=== PATIENT | male | born 1945 | race Caucasian/White ===

== ENCOUNTER → 2017-12-03 | Outpatient (CLI) | payer MEDICARE, OTHER | LOC: RAD 12:47 | PROVIDERS: ATTEND Family Medicine | DX: I25.10 Atherosclerotic heart disease of native coronary artery without angina pectoris (principal); J98.11 Atelectasis; N28.1 Cyst of kidney, acquired; M51.36 Other intervertebral disc degeneration, lumbar region; K57.30 Diverticulosis of large intestine without perforation or abscess without bleeding; L92.9 Granulomatous disorder of the skin and subcutaneous tissue, unspecified; K43.9 Ventral hernia without obstruction or gangrene; R91.8 Other nonspecific abnormal finding of lung field | CPT/HCPCS: 74176 ==

== ENCOUNTER 2018-05-09 09:33 | Emergency (ER) | payer OTHER ==
[~2018-05-09] VITALS: Ht 172.7 cm; Wt 79.5 kg
[2018-05-09 09:43] VITALS: BP 117/79
[2018-05-09] MEDS ORDERED: PRAV20TA2 PO (10:07)
[2018-05-09] MEDS ORDERED: LOSA25TA5 PO (10:07)
[2018-05-09] MEDS ORDERED: METF500T5 PO (10:08)
[2018-05-09] MEDS ORDERED: LISI-167 PO (10:08)
[2018-05-09] MEDS ORDERED: ASPI-496 PO (10:09)
[2018-05-09] MEDS ORDERED: SODIUM CHLORIDE 0.9% 1,000ML IVBOLUS ONE (10:30)
[2018-05-09] MEDS ORDERED: MECLIZINE CHEWABLE 25 MG TAB PO ONE (10:30)
[2018-05-09 10:32] LABS: BASOPHILS % (AUTO) 0 % (0-1); EOSINOPHILS # (AUTO) 0.33 x10^3/uL (0-0.4); EOSINOPHILS % (AUTO) 4 % (1-7); LYMPHOCYTES # (AUTO) 1.29 x10^3/uL (1-3.4); LYMPHOCYTES % (AUTO) 15 % (22-44); MD NO; MEAN CORPUSCULAR HEMOGLOBIN 31.5 pg (27.5-34.5); MEAN CORPUSCULAR HGB CONC 34.2 g/dL (33.2-36.2); MEAN PLATELET VOLUME 9.2 fL (7.4-10.4); MONOCYTES # (AUTO) 0.44 x10^3/uL (0.2-0.8); MONOCYTES % (AUTO) 5 % (2-9); NEUTROPHILS # (AUTO) 6.81 x10^3/uL (1.8-6.8); NEUTROPHILS % (AUTO) 77 % (42-75); PLATELET COUNT 207 x10^3/uL (130-400); RED BLOOD COUNT 5.34 x10^6/uL (4.38-5.82); RED CELL DISTRIBUTION WIDTH 13.1 % (9.4-14.8)
[2018-05-09 10:42] LABS: ALANINE AMINOTRANSFERASE 31 U/L (12-78); ALBUMIN 3.5 g/dL (3.4-5.0); ANION GAP 8 mmol/L (5-15); CALCIUM 8.4 mg/dL (8.5-10.1); CHLORIDE 107 mmol/L (98-107); CREATININE 0.82 mg/dL (0.7-1.3)
[2018-05-09 10:45] LABS: ALKALINE PHOSPHATASE 71 U/L (45-117); BILIRUBIN,TOTAL 0.7 mg/dL (0.2-1.0); TOTAL PROTEIN 6.7 g/dL (6.4-8.2)
[2018-05-09] MEDS ORDERED: MECLIZINE CHEWABLE 25 MG TAB ONE (10:49)
[2018-05-09] MEDS ORDERED: SODIUM CHLORIDE FLUSH 10ML SYR IVF ONE (11:30)
== END 2018-05-09 12:36 | disposition home or self-care (01) ==
LOC: ED 12:30
DX: H81.319 Aural vertigo, unspecified ear (principal); I10 Essential (primary) hypertension; E11.9 Type 2 diabetes mellitus without complications; E78.5 Hyperlipidemia, unspecified; R51 Headache
CPT/HCPCS: 36415; 70450; 80053; 85025; 93005; 96360; 99285; J7030

== ENCOUNTER → 2018-07-21 | Outpatient (CLI) | payer OTHER ==
[~2018-07-21] MED LIST: ASPI-496 PO; LISI-167 PO; LOSA25TA6 PO; METF500T17 PO; PRAV20TA2 PO
== END | disposition home or self-care (01) ==
LOC: STAR 14:40 → MERGE 15:00
PROVIDERS: ATTEND Thoracic Surgery (Cardiothoracic Vascular Surgery)
DX: Z02.9 Encounter for administrative examinations, unspecified (principal)

== ENCOUNTER 2018-07-25 10:27 | Day surgery (SDC) | payer OTHER ==
[~2018-07-25] VITALS: Ht 172.7 cm; Wt 80.9 kg
[~2018-07-25 10:27] MED LIST changes: +BUPIVACAINE/PF-EPI 0.5% 1:200K ONE
[2018-07-25 10:48] VITALS: BP 118/77
[2018-07-25] MEDS ORDERED: MIDAZOLAM 1 MG/ML, 2ML ONE (13:23)
[2018-07-25] MEDS ORDERED: FENTANYL PF 250 MCG/5ML ONE (13:23)
[2018-07-25] MEDS ORDERED: DEXAMETHASONE 4 MG/ML, 1ML ONE (14:02)
[2018-07-25] MEDS ORDERED: GLYCOPYRROLATE 0.2MG/1ML, 5ML ONE (14:02)
[2018-07-25] MEDS ORDERED: NEOSTIGMINE 1 MG/ML, 10ML ONE (14:02)
[2018-07-25] MEDS ORDERED: ROCURONIUM 10 MG/ML,10ML ONE (14:02)
[2018-07-25] MEDS ORDERED: KETOROLAC 30 MG/1 ML ONE (14:02)
[2018-07-25] MEDS ORDERED: ONDANSETRON 2MG/ML, 2ML ONE (14:02)
[2018-07-25] MEDS ORDERED: PROPOFOL 10 MG/ML, 20ML ONE (14:02)
[2018-07-25] MEDS ORDERED: CEFAZOLIN 1,000 MG ONE (14:02)
[2018-07-25] MEDS ORDERED: BUPIVACAINE/PF-EPI 0.5% 1:200K INFIL ONE (14:37)
[2018-07-25] MEDS ORDERED: ACETAMINOPHEN 650 MG/20.3 ML UDC ONE (15:16)
[2018-07-25] MEDS ORDERED: OXYcodone 5 MG/5 ML ORAL.SOL UDC ONE (15:16)
[2018-07-25] MEDS ORDERED: FENTANYL PF 100 MCG/2ML ONE (15:16)
[2018-07-25] MEDS ORDERED: LACTATED RINGERS 1,000 ML IV SCH (15:20)
[2018-07-25] MEDS ORDERED: ONDANSETRON 2MG/ML, 2ML IVPush PRN (15:30)
[2018-07-25] MEDS ORDERED: OXYcodone 5 MG/5 ML ORAL.SOL UDC PO PRN (15:30)
[2018-07-25] MEDS ORDERED: LABETALOL 5MG/ML, 20ML IV PRN (15:30)
[2018-07-25] MEDS ORDERED: LORazepam 2 MG/ML, 1ML IVPush PRN (15:30)
[2018-07-25] MEDS ORDERED: hydrALAzine 20 MG/ML, 1ML IV PRN (15:30)
[2018-07-25] MEDS ORDERED: KETOROLAC 30 MG/1 ML IVPush PRN (15:30)
[2018-07-25] MEDS ORDERED: HYDROcodone/APAP 5/325 TABLET PO PRN (15:30)
[2018-07-25] MEDS ORDERED: ALBUTEROL SULFATE 2.5 MG/3 ML NPPB PRN (15:30)
[2018-07-25] MEDS ORDERED: HYDROmorphone 1 MG/ML, 1ML IV PRN (15:30)
[2018-07-25] MEDS ORDERED: HYDROmorphone 2 MG/ML, 1ML IVPush PRN (15:30)
[2018-07-25] MEDS ORDERED: ACETAMINOPHEN 325 MG TABLET PO PRN (15:30)
[2018-07-25] MEDS: FENTANYL PF 100 MCG/2ML IV PRN ×2 (16:08→16:25)
== END 2018-07-25 19:10 | disposition home or self-care (01) ==
LOC: OUT 10:27 → MERGE 13:30 → OUT 19:10
PROVIDERS: ATTEND Thoracic Surgery (Cardiothoracic Vascular Surgery)
DX: K43.6 Other and unspecified ventral hernia with obstruction, without gangrene (principal); E78.5 Hyperlipidemia, unspecified; E78.00 Pure hypercholesterolemia, unspecified; I10 Essential (primary) hypertension; E03.9 Hypothyroidism, unspecified; E11.9 Type 2 diabetes mellitus without complications; J45.909 Unspecified asthma, uncomplicated; Z87.39 Personal history of other diseases of the musculoskeletal system and connective tissue; Z98.890 Other specified postprocedural states; Z79.82 Long term (current) use of aspirin; Z72.89 Other problems related to lifestyle
CPT/HCPCS: 49653; 82962; C1781; J0690; J1100; J1885; J2250; J2405; J2704; J2710; J3010; J3490; S2900